=== PATIENT | male | born 1995 | race Asian ===

== ENCOUNTER 2018-10-22 10:48 | Emergency (ER) | payer OTHER ==
[~2018-10-22] VITALS: Ht 175.3 cm; Wt 61.4 kg
[2018-10-22] MEDS ORDERED: PERTUSS(ACELL),DIPH,TET VAC/PF 0.5 ML VIAL IM ONE (12:30)
[2018-10-22] MEDS ORDERED: BACITRACIN 0.9 GM PACKET OINTMENT TP ONE (12:30)
[2018-10-22 12:43] VITALS: BP 120/76
== END 2018-10-22 13:20 | disposition home or self-care (01) ==
LOC: EMS 10:48
DX: T23.171A Burn of first degree of right wrist, initial encounter (principal); T23.172A Burn of first degree of left wrist, initial encounter; S60.812A Abrasion of left wrist, initial encounter; S60.811A Abrasion of right wrist, initial encounter; V49.40XA Driver injured in collision with unspecified motor vehicles in traffic accident, initial encounter; Y93.89 Activity, other specified; Y92.89 Other specified places as the place of occurrence of the external cause; Y99.8 Other external cause status
CPT/HCPCS: 16020; 90471; 90715